=== PATIENT | female | born 1975 | race Caucasian/White ===

== ENCOUNTER → 2022-09-08 13:03 | Outpatient (BNVA) | payer BC, SELFPAY | PROVIDERS: PCP Internal Medicine; Visit Provider Nurse Practitioner Family | DX: Z13.89 Encounter for screening for other disorder (principal) ==

== ENCOUNTER 2023-03-09 08:45 | Outpatient (AMB) | payer BC, SELFPAY ==
[2023-03-09 08:47] VITALS: BP 110/68; PULSE 98; O2SAT 99; BMI 22.6
--- NOTE | 2023-03-09 08:47 | MHC.OFFVIS ---
Intake Vital Signs 03/09/23 08:47 Height 5 ft 6 in Weight 140 lb BMI 22.6 BP 110/68 Blood Pressure Location Rt brachial Position Sitting Pulse 98 Pulse Source Pulse Oximeter Pulse Oximetry (%) 99 Oxygen Delivery Method Room Air Intake Visit Reasons: ongoing cough Recreation Activities Coordinator Required: No Rand Sewer: Rand Sewer offered & declined Accompanied by: Self / Same As Patient Allergies erythromycin base Adverse Reaction (Unknown, Verified 03/09/23 08:53) Vomiting Medication List - Last Reconciled 03/09/23 by Celena Davis LPN albuterol sulfate 90 mcg/actuation 2 puffs inhalation Q6H PRN budesonide-formoterol 80-4.5 mcg/actuation (Symbicort) 2 puffs inhalation BID levonorgestrel (Mirena) intrauterine HPI ongoing cough HPI Details Genna is a pleasant 47 year old, former smoker with 5 pack year history, quit 20+ years ago, with underlying POTS. She was referred by PCP for pulmonary evaluation for possible asthma. She reports prolonged dry coughing after bronchitis and has attempted to participate in vigorous activity but is limited by dyspnea. She denies wheezing or chest tightness. Her PCP trialed albuterol which provided relief, but patient was using q4-6 hours continuously and was switched to symbicort. She reports resolution of cough but develop a mouth sore so recently discontinued use. She denies any childhood asthma. She reports significant seasonal allergies, mostly in the fall, using jerrell with moderate relief. She has never been allergy tested. She does have one dog, but denies any symptoms related to exposure. She denies any occupational exposures. She reports children with seasonal allergies, otherwise no pertinent family history. [facility] Surgical History H/O laparoscopy H/O tympanostomy History of hernia repair History of shoulder surgery Hx of tonsillectomy Social History (Updated 03/09/23 @ 08:56 by Celena Davis LPN) Alcohol intake: current Alcohol intake frequency: a few times a week Patient Tobacco Use Status: Former Tobacco user Quit Date: 2001 Tobacco use type: Cigarette Cigarettes Per Day: 4 Years Smoked: 8 Review of Systems Const Denies chills, Denies excessive sweating, Denies fever(s), Denies headache(s) and Denies night sweats Eyes Denies dry eyes, Denies irritation and Denies itchy eyes ENT Reports Normal hearing present, Denies headache(s), Denies nasal congestion, Denies post nasal drip and Denies sore throat Card Denies chest pain, Denies chest pain at rest, Denies chest pain with activity, Denies claudication, Denies leg edema, Denies dyspnea, Denies dyspnea on exertion, Denies orthopnea and Denies paroxysmal nocturnal dyspnea Resp Denies chest congestion, Denies cough, Denies excessive phlegm production, Denies pain on inspiration, Denies pain with cough, Denies dyspnea, Denies dyspnea on exertion, Denies stridor and Denies wheezing Musc Denies myalgias Neuro Reports Normal hearing present and Denies headache(s) Endo Denies excessive sweating Govind/Lymph Denies lymphadenopathy Aller/Immun Denies itchy eyes and Denies wheezing Physical Exam Vital Signs: Last Vital Signs Pulse 98 03/09/23 08:47 BP 110/68 03/09/23 08:47 Pulse Ox 99 03/09/23 08:47 Oxygen Delivery Method Room Air 03/09/23 08:47 BMI result Body Mass Index 22.6 Const General: cooperative, healthy appearing, comfortable, no acute distress, well developed and alert Orientation/consciousness: patient oriented x3 Limitations: no limitations HEENT Head: Yes normal to inspection, Yes normocephalic and Yes atraumatic Ears: hearing grossly normal bilaterally and external ears normal Eyes General: appearance normal, both eyes and all related structures Eyelids: Yes eyelids normal Sclerae: sclerae normal EOM: EOMs intact bilaterally Neck Neck: Yes normal visual inspection and Yes no lymphadenopathy Lymphatic: no lymphadenopathy noted Chest Chest palpation & inspection: normal inspection of the chest Resp Effort & Inspection: normal respiratory effort, able to speak in complete sentences, no audible wheezes, no cough, no stridor, not tachypneic, no tripod positioning and no use of accessory muscles Auscultation: clear to auscultation bilaterally Cardio Jugular venous distension: no JVD Rate: regular rate Rhythm: regular rhythm Skin Other: warm, dry General skin exam: no rashes or lesions noted Neuro General: patient oriented x3 Cranial nerves: Yes Normal hearing present Cognition (Neuro): normal cognition Gait exam (Neuro): Normal gait present Extrem General: Yes normal to inspection, Yes capillary refill normal, Yes no clubbing, cyanosis or edema and Yes no pedal edema Psych Appearance: grossly normal and well kempt Speech and movement: Normal speech and movement present and Clear speech present Affect: normal affect Attitude: cooperative Thought process: Normal thought process present Thought content: Normal thought content present Insight: Good insight present (Psych) Judgement: Good judgement present (Psych) Assessment & Plan Assessment & Plan (1) Asthma: Code(s): J45.909 - Unspecified asthma, uncomplicated (2) Environmental and seasonal allergies: Code(s): J30.89 - Other allergic rhinitis Plan Reviewed PFT which revealed borderline mild obstruction with no significant response to bronchodilation. Lung volumes and DLCO WNL. Discussed methacholine challenge, but will hold off as patient responded well to ICS/LABA. Will switch symbicort to Breo, as patient developed mouth sores after symbicort use despite proper oral hygienge. Inhaler technique reviewed. Will also send for RAST testing. All questions were answered and patient is in agreement of plan. Will follow up in 4-6 weeks to assess response to inhaler and review lab results. Orders: Orders Rast Allergen Today J - Other allergic rhinitis, J45.909 - Unspecified asthma, uncomplicated Complete Blood Count Auto Diff Today J30 - Other allergic rhinitis, J45.909 - Unspecified asthma, uncomplicated Medications: New fluticasone furoate-vilanterol 100-25 mcg/dose (Breo Ellipta) 1 inh inhalation DAILY 60 ea 3RF albuterol sulfate 90 mcg/actuation 2 puffs inhalation Q4-6H PRN 1 ea 3RF shortness of breath or wheezing Coding Level of Care Code New Pt Level 4 (06916) Diagnoses Asthma J45.909 Environmental and seasonal allergies J30
== END 2023-03-09 09:27 | disposition home or self-care (01) ==
LOC: HO.HPSW 08:45
PROVIDERS: PCP Internal Medicine; Referring Provider Internal Medicine; Visit Provider Nurse Practitioner Family
DX: J45.909 Unspecified asthma, uncomplicated (principal); J30.89 Other allergic rhinitis
CPT/HCPCS: 99204

== ENCOUNTER 2023-03-09 10:10 | Outpatient (REF) | payer BC, SELFPAY ==
[2023-03-09 11:23] LABS: MANUAL DIFF FLAG NO
[2023-03-09 11:42] LABS: Basophils Absolute Auto 0.1 X10*3/uL (0.0-0.2); Basophils Percent Auto 1.2 % (0-2); Eosinophils Absolute Auto 0.1 X10*3/uL (0.0-0.4); Eosinophils Percent Auto 1.8 % (0-4); Hematocrit 40.8 % (37.0-47.0); Hemoglobin 14.7 g/dl (12.0-16.0); Imm Gran Abs Auto 0.01 X10*3/uL (0.00-0.03); Imm Gran Pct Auto 0.2 % (0.0-0.4); Lymphocytes Absolute Auto 1.3 X10*3/uL (1.2-4.9); Lymphocytes Percent Auto 25.6 % (20-40); Mean Corpuscular Hemoglobin 32.5 pg (27.0-33.0); Mean Corpuscular Volume 90.1 fL (80.0-98.0); Mean Platelet Volume 10.5 fL (9.4-12.3); Monocytes Absolute Auto 0.5 X10*3/uL (0.1-1.2); Monocytes Percent Auto 10.1 % (2-11); Neutrophils Percent Auto 61.1 % (45-73); Platelet Count 285 X10*3/uL (160-400); Red Blood Count 4.53 X10*6/uL (4.20-5.50); Red Cell Distribution Width 11.7 % (11.0-16.0)
== END 2023-03-09 10:11 | disposition home or self-care (01) ==
LOC: HO.WFDLDS 10:10
PROVIDERS: Visit Provider Nurse Practitioner Family
DX: J45.909 Unspecified asthma, uncomplicated (principal); Z91.09 Other allergy status, other than to drugs and biological substances
CPT/HCPCS: 36415; 82785; 85025; 86003

== ENCOUNTER 2023-04-13 13:33 | Outpatient (AMB) | payer BC, SELFPAY ==
[2023-04-13 13:35] VITALS: BP 118/64; PULSE 80; O2SAT 100; BMI 22.4
--- NOTE | 2023-04-13 13:35 | A.OFFVIS_ITS ---
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 Required: No Laboratory Immunologist: Laboratory Immunologist offered & declined Accompanied by: Self / Same As Patient Allergies erythromycin base Adverse Reaction (Unknown, Verified 04/13/23 13:39) Vomiting Medication List - Last Reconciled 04/13/23 by Celena Davis LPN albuterol sulfate 90 mcg/actuation 2 puffs inhalation Q6H PRN albuterol sulfate 90 mcg/actuation 2 puffs inhalation Q4-6H PRN fluticasone propion-salmeterol 115-21 mcg/actuation (Advair HFA) 2 puffs inhalation Q12H norgestimate-ethinyl estradiol 0.25-35 mg-mcg 1 tab PO DAILY HPI 4-6 week f/u HPI Details Genna is a pleasant 47 year old, former smoker with 5 pack year history, quit 20+ years ago, with underlying asthma and POTS. Today she presents to review RAST results and response to inhaler. At the last visit she was started on Advair HFA after persistent dry cough without any associated wheezing or chest tightness. She reports complete resolution of cough and has not used her albuterol MDI, which she was using q4-6 hours prior. She continues to report mild dyspnea with moderate exertion. [facility] Surgical History H/O laparoscopy H/O tympanostomy History of hernia repair History of shoulder surgery Hx of tonsillectomy Social History (Updated 04/13/23 @ 13:43 by Celena Davis LPN) Alcohol intake: current Alcohol intake frequency: a few times a week Patient Tobacco Use Status: Former Tobacco user Quit Date: 2001 Tobacco use type: Cigarette Cigarettes Per Day: 4 Years Smoked: 8 Review of Systems Const Denies chills, Denies excessive sweating, Denies fever(s), Denies headache(s) and Denies night sweats Eyes Denies dry eyes, Denies irritation and Denies itchy eyes ENT Reports Normal hearing present, Denies headache(s), Denies nasal congestion, Denies post nasal drip and Denies sore throat Card Denies chest pain, Denies chest pain at rest, Denies chest pain with activity, Denies claudication, Denies leg edema, Denies orthopnea and Denies paroxysmal nocturnal dyspnea Resp Denies chest congestion, Denies excessive phlegm production, Denies pain on inspiration, Denies pain with cough, Denies stridor and Denies wheezing Musc Denies myalgias Neuro Reports Normal hearing present and Denies headache(s) Endo Denies excessive sweating Govind/Lymph Denies lymphadenopathy Aller/Immun Denies itchy eyes and Denies wheezing Physical Exam Vital Signs: Last Vital Signs Pulse 80 04/13/23 13:35 BP 118/64 04/13/23 13:35 Pulse Ox 100 04/13/23 13:35 Oxygen Delivery Method Room Air 04/13/23 13:35 BMI result Body Mass Index 22.4 Const General: cooperative, healthy appearing, comfortable, no acute distress, well developed and alert Orientation/consciousness: patient oriented x3 Limitations: no limitations HEENT Head: Yes normal to inspection, Yes normocephalic and Yes atraumatic Ears: hearing grossly normal bilaterally and external ears normal Eyes General: appearance normal, both eyes and all related structures Eyelids: Yes eyelids normal Sclerae: sclerae normal EOM: EOMs intact bilaterally Neck Neck: Yes normal visual inspection and Yes no lymphadenopathy Lymphatic: no lymphadenopathy noted Chest Chest palpation & inspection: normal inspection of the chest Resp Effort & Inspection: normal respiratory effort, able to speak in complete sentences, no audible wheezes, no cough, no stridor, not tachypneic, no tripod positioning and no use of accessory muscles Auscultation: clear to auscultation bilaterally Cardio Jugular venous distension: no JVD Rate: regular rate Rhythm: regular rhythm Skin Other: warm, dry General skin exam: no rashes or lesions noted Neuro General: patient oriented x3 Cranial nerves: Yes Normal hearing present Cognition (Neuro): normal cognition Gait exam (Neuro): Normal gait present Extrem General: Yes normal to inspection, Yes capillary refill normal, Yes no clubbing, cyanosis or edema and Yes no pedal edema Psych Appearance: grossly normal and well kempt Speech and movement: Normal speech and movement present and Clear speech present Affect: normal affect Attitude: cooperative Thought process: Normal thought process present Thought content: Normal thought content present Insight: Good insight present (Psych) Judgement: Good judgement present (Psych) Assessment & Plan Assessment & Plan (1) Asthma: Code(s): J45.909 - Unspecified asthma, uncomplicated (2) Environmental and seasonal allergies: Code(s): J30.89 - Other allergic rhinitis Plan Reviewed RAST which was positive for dust mites and dog. Patient does have a dog at home. We discussed ways to decrease allergen exposure including dehumidifier and mattress/pillow covers. Although she reported significant improvements with Advair HFA, it was quiet costly. Will try to send in generic. If not covered, will trial another ICS/LABA. All questions were answered and patient is in agreement of plan. Will follow up in 6 months or sooner if needed. Medications: Changed From fluticasone propion-salmeterol 115-21 mcg/actuation (Advair HFA) 2 puffs i nhalation Q12H 1 ea 3RF To fluticasone propion-salmeterol 115-21 mcg/actuation (Advair HFA) generic only 2 puffs inhalation Q12H 1 ea 3RF Coding Level of Care Code Est Pt Level 3 (77544) Diagnoses Asthma J45.909 Environmental and seasonal allergies J30.89
== END 2023-04-13 14:07 | disposition home or self-care (01) ==
PROVIDERS: PCP Internal Medicine; Visit Provider Nurse Practitioner Family
DX: J45.909 Unspecified asthma, uncomplicated (principal); J30.89 Other allergic rhinitis
CPT/HCPCS: 99213

== ENCOUNTER → 2023-04-13 13:33 | Outpatient (BNVA) | payer BC, SELFPAY | PROVIDERS: PCP Internal Medicine; Visit Provider Nurse Practitioner Family ==

== ENCOUNTER 2023-10-03 09:18 | Outpatient (AMB) | payer BC, SELFPAY ==
[2023-10-03 09:27] VITALS: BP 114/68; PULSE 89; O2SAT 98; BMI 22.3
--- NOTE | 2023-10-03 09:27 | MHC.OFFVIS ---
Intake Vital Signs 10/03/23 09:27 Height 5 ft 6 in Weight 138 lb BMI 22.3 BP 114/68 Blood Pressure Location Rt brachial Position Sitting Pulse 89 Pulse Source Pulse Oximeter Pulse Oximetry (%) 98 Oxygen Delivery Method Room Air Intake Visit Reasons: asthma : 6 month f/u Traffic Workforce Representative Required: No Credit Card Control Clerk: Credit Card Control Clerk offered & declined Accompanied by: Self / Same As Patient Allergies erythromycin base Adverse Reaction (Unknown, Verified 10/03/23 09:30) Vomiting Medication List - Last Reconciled 10/03/23 by Celena Davis LPN albuterol sulfate 90 mcg/actuation 2 puffs inhalation Q6H PRN albuterol sulfate 90 mcg/actuation 2 puffs inhalation Q4-6H PRN fluticasone propion-salmeterol 115-21 mcg/actuation 2 puffs PO Q12H norgestimate-ethinyl estradiol 0.25-35 mg-mcg 1 tab PO DAILY HPI asthma : 6 month f/u HPI Details Genna is a pleasant 47 year old, former smoker with 5 pack year history, quit 20+ years ago, with underlying asthma and POTS. At baseline, she has been well controlled on Advair 115mcg 1 inhalation BID, with minimal use of albuterol inhaler. She reports dry cough that started last week, attributing it to seasonal allergies, and had resolution after initiating daily jrerell. Occasionally will have dyspnea on exertion, otherwise denies wheezing or chest tightness. She reports having COVID in June but was able to recover at home with no issues. Today she presents for a routine follow up. [facility] Surgical History (Reviewed 09/08/22 @ 13:21 by Miriam Villalta [facility]) H/O laparoscopy H/O tympanostomy History of hernia repair History of shoulder surgery Hx of tonsillectomy Social History (Updated 10/03/23 @ 09:31 by Celena Davis LPN) Alcohol intake: current Alcohol intake frequency: a few times a week Patient Tobacco Use Status: Former Tobacco user Quit Date: 2001 Tobacco use type: Cigarette Cigarettes Per Day: 4 Years Smoked: 8 Review of Systems Const Denies chills, Denies excessive sweating, Denies fever(s), Denies headache(s) and Denies night sweats Eyes Denies dry eyes, Denies irritation and Denies itchy eyes ENT Reports Normal hearing present, Denies headache(s), Denies nasal congestion, Denies nasal discharge, Denies post nasal drip and Denies sore throat Card Denies chest pain, Denies chest pain at rest, Denies chest pain with activity, Denies claudication, Denies leg edema, Denies dyspnea, Denies orthopnea and Denies paroxysmal nocturnal dyspnea Resp Denies chest congestion, Denies cough, Denies excessive phlegm production, Denies pain on inspiration, Denies pain with cough, Denies dyspnea, Denies stridor and Denies wheezing Musc Denies myalgias Neuro Reports Normal hearing present and Denies headache(s) Endo Denies excessive sweating Govind/Lymph Denies lymphadenopathy Aller/Immun Denies itchy eyes, Denies seasonal rhinorrhea and Denies wheezing Physical Exam Vital Signs: Last Vital Signs Pulse 89 10/03/23 09:27 BP 114/68 10/03/23 09:27 Pulse Ox 98 10/03/23 09:27 Oxygen Delivery Method Room Air 10/03/23 09:27 BMI result Body Mass Index 22.3 Const General: cooperative, healthy appearing, comfortable, no acute distress, well developed and alert Orientation/consciousness: patient oriented x3 Limitations: no limitations HEENT Head: Yes normal to inspection, Yes normocephalic and Yes atraumatic Ears: hearing grossly normal bilaterally and external ears normal Eyes General: appearance normal, both eyes and all related structures Eyelids: Yes eyelids normal Sclerae: sclerae normal EOM: EOMs intact bilaterally Neck Neck: Yes normal visual inspection and Yes no lymphadenopathy Lymphatic: no lymphadenopathy noted Chest Chest palpation & inspection: normal inspection of the chest Resp Effort & Inspection: normal respiratory effort, able to speak in complete sentences, no audible wheezes, no cough, no stridor, not tachypneic, no tripod positioning and no use of accessory muscles Auscultation: clear to auscultation bilaterally Cardio Jugular venous distension: no JVD Rate: regular rate Rhythm: regular rhythm Skin Other: warm, dry General skin exam: no rashes or lesions noted Neuro General: patient oriented x3 Cranial nerves: Yes Normal hearing present Cognition (Neuro): normal cognition Gait exam (Neuro): Normal gait present Extrem General: Yes normal to inspection, Yes capillary refill normal, Yes no clubbing, cyanosis or edema and Yes no pedal edema Psych Appearance: grossly normal and well kempt Speech and movement: Normal speech and movement present and Clear speech present Affect: normal affect Attitude: cooperative Thought process: Normal thought process present Thought content: Normal thought content present Insight: Good insight present (Psych) Judgement: Good judgement present (Psych) Assessment & Plan Assessment & Plan (1) Asthma: Code(s): J45.909 - Unspecified asthma, uncomplicated (2) Environmental and seasonal allergies: Code(s): J30.89 - Other allergic rhinitis Plan Vail reports excellent control of symptoms at this time, advised to continue current regimen. Recommended to use albuterol 15-20 minutes prior to exercise to see if this alleviates dyspnea with exertion. All questions were answered and patient is in agreement of plan. Will follow up in 6 months or sooner if needed. Coding Level of Care Code Est Pt Level 3 (63334) Diagnoses Asthma J45.909 Environmental and seasonal allergies J30.89
== END 2023-10-03 09:46 | disposition home or self-care (01) ==
PROVIDERS: PCP Internal Medicine; Visit Provider Nurse Practitioner Family
DX: J45.909 Unspecified asthma, uncomplicated (principal); J30.89 Other allergic rhinitis
CPT/HCPCS: 99213

== ENCOUNTER → 2023-10-03 09:18 | Outpatient (BNVA) | payer BC, SELFPAY | PROVIDERS: PCP Internal Medicine; Visit Provider Nurse Practitioner Family ==

== ENCOUNTER 2023-11-07 08:39 | Outpatient (AMB) | payer BC, SELFPAY ==
[2023-11-07 08:45] VITALS: BP 104/68; PULSE 95; O2SAT 98; BMI 22.4
--- NOTE | 2023-11-07 08:45 | MHC.OFFVIS ---
Vital Signs 11/07/23 08:45 Height 5 ft 6 in Weight 138 lb 8 oz BMI 22.4 BP 104/68 Blood Pressure Location Rt brachial Position Sitting Pulse 95 Pulse Source Pulse Oximeter Pulse Oximetry (%) 98 Oxygen Delivery Method Room Air Intake Visit Reasons: Persistent Cough Allergies erythromycin base Adverse Reaction (Unknown, Verified 11/07/23 08:48) Vomiting HPI HPI Persistent Cough: Details: Genna is a pleasant 47 year old, former smoker with 5 pack year history, quit 20+ years ago, with underlying asthma and POTS. At baseline, she has been well controlled on Advair 115mcg 1 inhalation BID, with minimal use of albuterol inhaler. Today she presents for an acute visit. She reports dry cough and chest tightness that started about ten days ago, attributing it to seasonal allergies initially. She increased her Advair to 2 inhalations twice daily a few days ago and started daily zyrtec with minimal improvement in symptoms. She also has trialied albtuerol with minimal change in symptoms. She denies any dyspnea on exertion or wheezing. She denies any fevers, chills or sick contacts. [facility] Surgical History H/O laparoscopy H/O tympanostomy History of hernia repair History of shoulder surgery Hx of tonsillectomy Social History Alcohol intake: current Alcohol intake frequency: a few times a week Patient Tobacco Use Status: Former Tobacco user Quit Date: 2001 Tobacco use type: Cigarette Cigarettes Per Day: 4 Years Smoked: 8 Review of Systems Const Denies chills, Denies excessive sweating, Denies fever(s), Denies headache(s) and Denies night sweats Eyes Denies dry eyes, Denies irritation and Denies itchy eyes ENT Reports Normal hearing present, Denies headache(s), Denies nasal congestion, Denies nasal discharge and Denies sore throat Card Denies chest pain, Denies chest pain at rest, Denies chest pain with activity, Denies claudication, Denies leg edema, Denies dyspnea, Denies orthopnea and Denies paroxysmal nocturnal dyspnea Resp Denies chest congestion, Denies excessive phlegm production, Denies dyspnea, Denies stridor and Denies wheezing Musc Denies myalgias Neuro Reports Normal hearing present and Denies headache(s) Endo Denies excessive sweating Govind/Lymph Denies lymphadenopathy Aller/Immun Denies itchy eyes, Denies seasonal rhinorrhea and Denies wheezing Physical Exam Vital Signs: Last Vital Signs Pulse 95 11/07/23 08:45 BP 104/68 11/07/23 08:45 Pulse Ox 98 11/07/23 08:45 Oxygen Delivery Method Room Air 11/07/23 08:45 BMI result Body Mass Index 22.4 Const General: cooperative, healthy appearing, comfortable, no acute distress, well developed and alert Orientation/consciousness: patient oriented x3 Limitations: no limitations HEENT Head: Yes normal to inspection, Yes normocephalic and Yes atraumatic Ears: hearing grossly normal bilaterally and external ears normal Eyes General: appearance normal, both eyes and all related structures Eyelids: Yes eyelids normal Sclerae: sclerae normal EOM: EOMs intact bilaterally Neck Neck: Yes normal visual inspection and Yes no lymphadenopathy Lymphatic: no lymphadenopathy noted Chest Chest palpation & inspection: normal inspection of the chest Resp Other: diminished expiratory lung sounds with post exhalation cough, improved with albuterol neb Effort & Inspection: normal respiratory effort, able to speak in complete sentences, no audible wheezes, no stridor, not tachypneic, no tripod positioning and no use of accessory muscles Cardio Jugular venous distension: no JVD Rate: regular rate Rhythm: regular rhythm Skin Other: warm, dry General skin exam: no rashes or lesions noted Neuro General: patient oriented x3 Cranial nerves: Yes Normal hearing present Cognition (Neuro): normal cognition Gait exam (Neuro): Normal gait present Extrem General: Yes normal to inspection, Yes capillary refill normal, Yes no clubbing, cyanosis or edema and Yes no pedal edema Psych Appearance: grossly normal and well kempt Speech and movement: Normal speech and movement present and Clear speech present Affect: normal affect Attitude: cooperative Thought process: Normal thought process present Thought content: Normal thought content present Insight: Good insight present (Psych) Judgement: Good judgement present (Psych) Office Procedures Nebulizer Treatment Nebulizer Treatment [id number]/MDI RX initial, or Nebulizer Subsequent Treatment Office Meds albuterol sulfate 2.5 mg/3 mL (0.083 %) solution for nebulization Performing Provider: Carmen White NP Performing Location: [facility] Administered by: Celena Davis LPN on 11/07/23 09:06 Dose Route Admin Location Dispensed Lot Number Expiration Date [facility] Senior Database Programmer 2.5 mg inhalation 3 mL [id number] 05/24/24 [id number] [facility] Assessment & Plan Assessment & Plan (1) Asthma: Code(s): J45.909 - Unspecified asthma, uncomplicated Category: Medical (2) Environmental and seasonal allergies: Code(s): J30.89 - Other allergic rhinitis Category: Medical Plan Vail presents for an acute visit reporting persistent dry cough and chest tightness for the past 10 days. Nebulizer given in office with symptomatic improvement however still with post exhalation cough. Will send for prednisone and trial singulair. All questions were answered and patient is in agreement of plan. Will follow up in 3 months or sooner if needed. Orders: Orders AMB Nebulizer Treatment Today J45.909 - Unspecified asthma, uncomplicated Medications: New prednisone 40 mg (2 x 20 mg) PO DAILY 10 tabs 0RF Coding Level of Care Code Est Pt Level 4 (73220) Diagnoses Asthma J45.909 Environmental and seasonal allergies J30.89 CPT Codes Nebulizer Treatment - Nebulizer Treatment, initial or subsequent: [id number]-Kalqztuln/MDI RX initial, or Nebulizer Subsequent Treatment ([id number])
== END 2023-11-07 09:34 | disposition home or self-care (01) ==
PROVIDERS: PCP Internal Medicine; Visit Provider Nurse Practitioner Family
DX: J45.909 Unspecified asthma, uncomplicated (principal); J30.89 Other allergic rhinitis
CPT/HCPCS: 99214

== ENCOUNTER → 2023-11-07 08:39 | Outpatient (BNVA) | payer BC, SELFPAY | PROVIDERS: PCP Internal Medicine; Visit Provider Nurse Practitioner Family | DX: J45.909 Unspecified asthma, uncomplicated (principal) | CPT/HCPCS: 94640 ==

== ENCOUNTER 2024-06-04 08:38 | Outpatient (AMB) | payer BC, SELFPAY ==
--- NOTE | 2024-06-04 08:45 | MHC.OFFVIS ---
Vital Signs 06/04/24 08:50 Height 5 ft 6 in Weight 139 lb 2 oz BMI 22.5 BP 106/70 Blood Pressure Location Rt brachial Position Sitting Pulse 82 Pulse Source Pulse Oximeter Pulse Oximetry (%) 98 Oxygen Delivery Method Room Air Intake Visit Reasons: Asthma Allergies erythromycin base Adverse Reaction (Unknown, Verified 06/04/24 08:51) Vomiting HPI HPI Asthma: Details: Genna is a pleasant 48 year old, former smoker with 5 pack year history, quit 20+ years ago, with underlying asthma and POTS. At baseline, she has been well controlled on Advair 115mcg ,albuterol MDI, zyrtec and singulair. Today she presents for routine follow-up. She denies any visits to urgent care or hospitalizations related to respiratory distress since last visit. She does note new diagnosis of GERD, recently started on omeprazole and has upper and lower GI scheduled in July 28 [facility] when GI. Main sx in stomach discomfort, no cough. At this time she reports good control of respiratory symptoms on current regimen. She does note that Advair is quite expensive, insurance recommended Wixela. [facility] Surgical History H/O laparoscopy H/O tympanostomy History of hernia repair History of shoulder surgery Hx of tonsillectomy Social History Alcohol intake: current Alcohol intake frequency: a few times a week Patient Tobacco Use Status: Former Tobacco user Tobacco use type: Cigarette Cigarettes Per Day: 4 Years Smoked: 8 Review of Systems Const Denies chills, Denies excessive sweating, Denies fever(s), Denies headache(s) and Denies night sweats Eyes Denies dry eyes, Denies irritation and Denies itchy eyes ENT Reports Normal hearing present, Denies headache(s), Denies nasal congestion, Denies nasal discharge and Denies sore throat Card Denies chest pain, Denies chest pain at rest, Denies chest pain with activity, Denies claudication, Denies leg edema, Denies dyspnea, Denies dyspnea on exertion, Denies orthopnea and Denies paroxysmal nocturnal dyspnea Resp Denies chest congestion, Denies cough, Denies excessive phlegm production, Denies dyspnea, Denies dyspnea on exertion, Denies stridor and Denies wheezing Musc Denies myalgias Neuro Reports Normal hearing present and Denies headache(s) Endo Denies excessive sweating Govind/Lymph Denies lymphadenopathy Aller/Immun Denies itchy eyes, Denies seasonal rhinorrhea and Denies wheezing Physical Exam Vital Signs: BMI result Body Mass Index 22.5 Const General: cooperative, healthy appearing, comfortable, no acute distress, well developed and alert Orientation/consciousness: patient oriented x3 Limitations: no limitations HEENT Head: Yes normal to inspection, Yes normocephalic and Yes atraumatic Ears: hearing grossly normal bilaterally and external ears normal Eyes General: appearance normal, both eyes and all related structures Eyelids: Yes eyelids normal Sclerae: sclerae normal EOM: EOMs intact bilaterally Neck Neck: Yes normal visual inspection and Yes no lymphadenopathy Lymphatic: no lymphadenopathy noted Chest Chest palpation & inspection: normal inspection of the chest Resp Effort & Inspection: normal respiratory effort, able to speak in complete sentences, no audible wheezes, no cough, no stridor, not tachypneic, no tripod positioning and no use of accessory muscles Auscultation: clear to auscultation bilaterally Cardio Jugular venous distension: no JVD Rate: regular rate Rhythm: regular rhythm Skin Other: warm, dry General skin exam: no rashes or lesions noted Neuro General: patient oriented x3 Cranial nerves: Yes Normal hearing present Cognition (Neuro): normal cognition Gait exam (Neuro): Normal gait present Extrem General: Yes normal to inspection, Yes capillary refill normal, Yes no clubbing, cyanosis or edema and Yes no pedal edema Psych Appearance: grossly normal and well kempt Speech and movement: Normal speech and movement present and Clear speech present Affect: normal affect Attitude: cooperative Thought process: Normal thought process present Thought content: Normal thought content present Insight: Good insight present (Psych) Judgement: Good judgement present (Psych) Assessment & Plan Assessment & Plan (1) Asthma: Code(s): J45.909 - Unspecified asthma, uncomplicated Category: Medical (2) Environmental and seasonal allergies: Code(s): J30.89 - Other allergic rhinitis Category: Medical Plan Vail reports excellent control of symptoms at this time, advised to continue current regimen. Will attempt to switch Advair to Wixela. All questions were answered and patient is in agreement of plan. Will follow up in 3 months or sooner if needed. Medications: New fluticasone propion-salmeterol 250-50 mcg/dose (Wixela Inhub) 1 inh inhalation Q12H 60 ea 6RF Refilled albuterol sulfate 90 mcg/actuation 2 puffs inhalation Q4-6H PRN 1 ea 3RF shortness of breath or wheezing Discontinued prednisone Discontinued Reason: Patient Completed Course 40 mg (2 x 20 mg) PO DAILY 10 tabs 0RF Coding Level of Care Code Est Pt Level 3 (74279) Diagnoses Asthma J45.909 Environmental and seasonal allergies J30.89
[2024-06-04 08:50] VITALS: BP 106/70; PULSE 82; O2SAT 98; BMI 22.5
== END 2024-06-04 09:11 | disposition home or self-care (01) ==
PROVIDERS: PCP Internal Medicine; Visit Provider Nurse Practitioner Family
DX: J45.909 Unspecified asthma, uncomplicated (principal); J30.89 Other allergic rhinitis
CPT/HCPCS: 99213

== ENCOUNTER 2024-09-19 14:56 | Outpatient (AMB) | payer BC, SELFPAY ==
[2024-09-19 15:00] VITALS: BP 122/60; PULSE 100; O2SAT 97; BMI 21.3
--- NOTE | 2024-09-19 15:00 | MHC.OFFVIS ---
Vital Signs 09/19/24 15:00 Height 5 ft 6 in Weight 132 lb BMI 21.3 BP 122/60 Blood Pressure Location Rt brachial Position Sitting Pulse 100 Pulse Source Pulse Oximeter Pulse Oximetry (%) 97 Oxygen Delivery Method Room Air Intake Visit Reasons: asthma/ sick Hospice Administrator Required: No Obstetrician Gynecologist: Obstetrician Gynecologist offered & declined Accompanied by: Self / Same As Patient Allergies erythromycin base Adverse Reaction (Unknown, Verified 09/19/24 15:05) Vomiting Medication List - Last Reconciled 09/19/24 by Celena Davis LPN albuterol sulfate 90 mcg/actuation 2 puffs inhalation Q4-6H PRN cetirizine (Zyrtec) 10 mg PO DAILY PRN fluticasone propion-salmeterol 250-50 mcg/dose (Wixela Inhub) 1 inh inhalation Q12H levonorgestrel (Mirena) intrauterine montelukast (Singulair) 10 mg PO BEDTIME omeprazole 20 mg PO DAILY HPI HPI asthma/ sick: Details: Genna is a pleasant 49 year old, former smoker with 5 pack year history, quit 20+ years ago, with underlying asthma and POTS. At baseline, she has been well controlled on Advair 115mcg ,albuterol MDI, zyrtec and singulair. Today she presents for an acute visit. She reports traveling and developed flu like symptoms two weeks ago initially with fever and body aches, testing + Influenza A. She continues to report productive cough, chest congestion and increased dyspnea. She has used Sudafed without significant relief. [facility] Surgical History H/O laparoscopy H/O tympanostomy History of hernia repair History of shoulder surgery Hx of tonsillectomy Social History Alcohol intake: current Alcohol intake frequency: a few times a week Patient Tobacco Use Status: Former Tobacco user Tobacco use type: Cigarette Cigarettes Per Day: 4 Years Smoked: 8 Review of Systems Const Denies chills, Denies excessive sweating, Denies fever(s), Denies headache(s) and Denies night sweats Eyes Denies dry eyes, Denies irritation and Denies itchy eyes ENT Reports Normal hearing present, Denies headache(s), Denies nasal congestion, Denies nasal discharge, Denies post nasal drip and Denies sore throat Card Denies chest pain, Denies chest pain at rest, Denies chest pain with activity, Denies claudication, Denies leg edema, Denies orthopnea and Denies paroxysmal nocturnal dyspnea Resp Denies excessive phlegm production, Denies pain on inspiration, Denies pain with cough, Denies stridor and Denies wheezing Musc Denies myalgias Neuro Reports Normal hearing present and Denies headache(s) Endo Denies excessive sweating Govind/Lymph Denies lymphadenopathy Aller/Immun Denies itchy eyes, Denies seasonal rhinorrhea and Denies wheezing Physical Exam Vital Signs: Last Vital Signs Pulse 100 09/19/24 15:00 BP 122/60 09/19/24 15:00 Pulse Ox 97 09/19/24 15:00 Oxygen Delivery Method Room Air 09/19/24 15:00 BMI result Body Mass Index 21.3 Const General: cooperative, healthy appearing, comfortable, no acute distress, well developed and alert Orientation/consciousness: patient oriented x3 Limitations: no limitations HEENT Head: Yes normal to inspection, Yes normocephalic and Yes atraumatic Ears: hearing grossly normal bilaterally and external ears normal Eyes General: appearance normal, both eyes and all related structures Eyelids: Yes eyelids normal Sclerae: sclerae normal EOM: EOMs intact bilaterally Neck Neck: Yes normal visual inspection and Yes no lymphadenopathy Lymphatic: no lymphadenopathy noted Chest Chest palpation & inspection: normal inspection of the chest Resp Effort & Inspection: normal respiratory effort, able to speak in complete sentences, no audible wheezes, Actively coughing Quality: wet, no stridor, not tachypneic, no tripod positioning and no use of accessory muscles Auscultation: rhonchi Cardio Jugular venous distension: no JVD Rate: regular rate Rhythm: regular rhythm Skin Other: warm, dry General skin exam: no rashes or lesions noted Neuro General: patient oriented x3 Cranial nerves: Yes Normal hearing present Cognition (Neuro): normal cognition Gait exam (Neuro): Normal gait present Extrem General: Yes normal to inspection, Yes capillary refill normal, Yes no clubbing, cyanosis or edema and Yes no pedal edema Psych Appearance: grossly normal and well kempt Speech and movement: Normal speech and movement present and Clear speech present Affect: normal affect Attitude: cooperative Thought process: Normal thought process present Thought content: Normal thought content present Insight: Good insight present (Psych) Judgement: Good judgement present (Psych) Assessment & Plan Assessment & Plan (1) Asthma: Code(s): J45.909 - Unspecified asthma, uncomplicated Category: Medical (2) Environmental and seasonal allergies: Code(s): J30.89 - Other allergic rhinitis Category: Medical Plan Will treat bronchitic symptoms with azithromycin and encouraged use of albuterol MDI. Will hold off on prednisone at this time. She is aware to call if symptoms do not improve. Will also send nebulizer for home use with albuterol solution. All questions were answered and patient is in agreement of plan. Will follow up in 3-6 months or sooner if needed. Medications: New azithromycin For 250 mg dose pack: take 500 mg today (day 1), then 250 mg for 4 days (days 2-5) PO 6 tabs 0RF albuterol sulfate 2.5 mg (3 mL) inhalation Q4-6H PRN 180 mL 0RF shortness of breath or wheezing Coding Level of Care Code Est Pt Level 4 (60618) Diagnoses Asthma J45.909 Environmental and seasonal allergies J30.89
== END 2024-09-19 15:22 | disposition home or self-care (01) ==
LOC: HO.HPSW 14:56
PROVIDERS: PCP Internal Medicine; Visit Provider Nurse Practitioner Family
DX: J45.909 Unspecified asthma, uncomplicated (principal); J30.89 Other allergic rhinitis
CPT/HCPCS: 99214

== ENCOUNTER 2025-03-17 15:13 | Outpatient (AMB) | payer BC, SELFPAY ==
[2025-03-17 15:14] VITALS: BP 90/62; PULSE 72; O2SAT 98; BMI 22.5
--- NOTE | 2025-03-17 15:14 | MHC.OFFVIS ---
Vital Signs 03/17/25 15:14 Height 5 ft 6 in Weight 139 lb 2 oz BMI 22.5 BP 90/62 Blood Pressure Location Rt brachial Position Sitting Pulse 72 Pulse Source Pulse Oximeter Pulse Oximetry (%) 98 Oxygen Delivery Method Room Air Intake Visit Reasons: asthma/ sick Allergies erythromycin base Adverse Reaction (Unknown, Verified 03/17/25 15:17) Vomiting HPI HPI asthma/ sick: Details: Genna is a pleasant 49 year old, former 5 pack year smoker, quit 20+ years ago, with underlying asthma and POTS. She reports excellent control of respiratory symptoms on current regimen of Wixela, albuterol PRN, zyrtec and Singulair. Over the summer she decreased used to one inhalation daily however with the season changing developed a dry cough, increasing dose to BID with good effect. She uses albuterol MDI infrequently. Denies any visits to urgent care or hospitalizations related to respiratory distress since the last visit. [facility] Surgical History H/O laparoscopy H/O tympanostomy History of hernia repair History of shoulder surgery Hx of tonsillectomy Social History Alcohol intake: current Alcohol intake frequency: a few times a week Patient Tobacco Use Status: Former Tobacco user Tobacco use type: Cigarette Cigarettes Per Day: 4 Years Smoked: 8 Review of Systems Const Denies chills, Denies excessive sweating, Denies fever(s), Denies headache(s) and Denies night sweats Eyes Denies dry eyes, Denies irritation and Denies itchy eyes ENT Reports Normal hearing present, Denies headache(s), Denies nasal congestion, Denies nasal discharge, Denies post nasal drip and Denies sore throat Card Denies chest pain, Denies chest pain at rest, Denies chest pain with activity, Denies claudication, Denies leg edema, Denies dyspnea, Denies dyspnea on exertion, Denies orthopnea and Denies paroxysmal nocturnal dyspnea Resp Denies chest congestion, Denies excessive phlegm production, Denies pain on inspiration, Denies pain with cough, Denies dyspnea, Denies dyspnea on exertion, Denies stridor and Denies wheezing Musc Denies myalgias Neuro Reports Normal hearing present and Denies headache(s) Endo Denies excessive sweating Govind/Lymph Denies lymphadenopathy Aller/Immun Denies itchy eyes, Denies seasonal rhinorrhea and Denies wheezing Physical Exam Vital Signs: Last Vital Signs Pulse 72 03/17/25 15:14 BP 90/62 03/17/25 15:14 Pulse Ox 98 03/17/25 15:14 Oxygen Delivery Method Room Air 03/17/25 15:14 BMI result Body Mass Index 22.5 Const General: cooperative, healthy appearing, comfortable, no acute distress, well developed and alert Orientation/consciousness: patient oriented x3 Limitations: no limitations HEENT Head: Yes normal to inspection, Yes normocephalic and Yes atraumatic Ears: hearing grossly normal bilaterally and external ears normal Eyes General: appearance normal, both eyes and all related structures Eyelids: Yes eyelids normal Sclerae: sclerae normal EOM: EOMs intact bilaterally Neck Neck: Yes normal visual inspection and Yes no lymphadenopathy Lymphatic: no lymphadenopathy noted Chest Chest palpation & inspection: normal inspection of the chest Resp Effort & Inspection: normal respiratory effort, able to speak in complete sentences, no audible wheezes, no cough, no stridor, not tachypneic, no tripod positioning and no use of accessory muscles Auscultation: clear to auscultation bilaterally Cardio Jugular venous distension: no JVD Rate: regular rate Rhythm: regular rhythm Skin Other: warm, dry General skin exam: no rashes or lesions noted Neuro General: patient oriented x3 Cranial nerves: Yes Normal hearing present Cognition (Neuro): normal cognition Gait exam (Neuro): Normal gait present Extrem General: Yes normal to inspection, Yes capillary refill normal, Yes no clubbing, cyanosis or edema and Yes no pedal edema Psych Appearance: grossly normal and well kempt Speech and movement: Normal speech and movement present and Clear speech present Affect: normal affect Attitude: cooperative Thought process: Normal thought process present Thought content: Normal thought content present Insight: Good insight present (Psych) Judgement: Good judgement present (Psych) Assessment & Plan Assessment & Plan (1) Asthma: Code(s): J45.909 - Unspecified asthma, uncomplicated Category: Medical (2) Environmental and seasonal allergies: Code(s): J30.89 - Other allergic rhinitis Category: Medical Plan At this time, Genna reports good control of respiratory symptoms on current regimen, advised to continue. She is aware to call if symptoms change. All questions were answered and patient is in agreement of plan. Will follow up in 9-12 months or sooner if needed. Coding Level of Care Code Est Pt Level 3 (88171) Diagnoses Asthma J45.909 Environmental and seasonal allergies J30.89
--- OUTSIDE RECORDS SUMMARY | 2025-03-17 18:10 | XMS_ITS | Clinical Summary ---
Author Organization [facility] [address] [facility] Address [address] [place] [address] Phone Care Team Providers Care Tool Tender Name Role Phone Jim Hurtado MD Primary Care Provider [phone] Surgical History Surgery Date Site/Laterality Comments TYMPANOSTOMY TUBE PLACEMENT 1979 PROCEDURE: HISTORICAL PE TUBES SHOULDER SURGERY 1991 PROCEDURE: HISTORICAL SHOULDER SURGERY; COMMENT: right ABDOMINAL SURGERY 1998 PROCEDURE: MO UNLISTED PROCEDURE ABDOMEN PERITONEUM & OMENTUM; COMMENT: endometriosis HERNIA REPAIR 1984 PROCEDURE: HISTORICAL HERNIA REPAIR/ING TONSILLECTOMY 1992 PROCEDURE: HISTORICAL TONSILLECTOMY OTHER SURGICAL HISTORY PROCEDURE: ---- OTHER ----; COMMENT: IVF's x2 OTHER SURGICAL HISTORY PROCEDURE: ---- OTHER ----; COMMENT: atypical moles removed OTHER SURGICAL HISTORY 12/03/12 PROCEDURE: HISTORICAL THYRO-DUCTAL CYST REMOVAL; COMMENT: Dr Charles Medical History Medical History Date Comments Endometriosis 1998 DX:Endometriosis ; COMMENT: surgery Historical Medical DX DX:TMJ dis order; COMMENT: per old records Family History Medical History Relation Name Comments Coronary artery disease Neg Hx Diabetes Neg Hx Hypertension Neg Hx Other cancer Neg Hx Relation Name Status Comments Brother Alive Daughter Alive 2004 Father Alive Mother Alive Son Alive 2002 Social History Tobacco Use Types Packs/Day Years Used Date Smoking Tobacco: Former Smokeless Tobacco: Never Alcohol Use Standard Drinks/Week Comments Yes 0 (1 standard drink = 0.6 oz pur e alcohol) Comments Unknown Sex and Gender Information Value Date Recorded Sex Assigned at Not on file Legal Sex Female 2:55 AM EST Gender Identity Not on file Sexual Orientation Not on file Obstetrics History Last Filed Vital Signs Vital Sign Reading Time Taken Comments Blood Pressure 126/74 12/12/2023 1:47 PM EDT Pulse 72 12/12/2023 1:47 PM EDT Temperature - - Respiratory Rate - - Oxygen Saturation - - Inhaled Oxygen Concentration - - Weight 62.6 kg (138 lb) 12/12/2023 1:47 PM EDT Height 170.2 cm (5' 7 ) 12/12/2023 1:47 PM EDT Body Mass Index 21.61 12/12/2023 1:47 PM EDT Plan of Treatment Upcoming Encounters Date Type Department Care Team (Late st Contact Info) Description 04/22/2025 2:45 PM EDT Office Visit [facility] [address] [facility] [address] [place] [id number] Radha Mares MD [address] [place] [address] [place] [address] Health Maintenance Due Date Last Done Comments Breast Cancer Screening 1976 Hepatitis B Vaccines (1 of 3 - 19+ 3-dose series) 1995 Cervical Cancer Screening: P ap Smear 1997 DTaP,Tdap,and Td Vaccines (2 - Td or Tdap) 09/29/2018 09/29/2008 Colorectal Cancer Screening: Colonoscopy 06/03/2022 HIV Screening 06/03/2022 Hepatitis C Screening 06/03/2022 Social Influencers of Health Screening 06/03/2022 Depression Screening 2024 COVID-19 Vaccine (3 - 2024-2 6 season) 2025 11/01/2020, 10/09/2020 Influenza Vaccine (#1) 2025 , 03/31/2020, 04/22/2019 Hepatitis A Vaccines Aged Out 09/17/2013 No long er eligible based on patient's age to complete this topic HIB Vaccines Aged Out No longer eligi ble based on patient's age to complete this topic HPV Vaccines Aged Out No longer eligi ble based on patient's age to complete this topic IPV Vaccines Aged Out No longer eligi ble based on patient's age to complete this topic MMR Vaccines Aged Out No longer eligi ble based on patient's age to complete this topic Meningococcal ACWY Vaccine Aged Out N o longer eligible based on patient's age to complete this topic Meningococcal B Vaccine Aged Out No l onger eligible based on patient's age to complete this topic Pneumococcal Vaccine: Pediatrics (0 to 5 Years) and At-Risk Patients (6 to 49 Years) Aged Out No longer eligible b ased on patient's age to complete this topic RSV Immunization Patients Under 20 months Aged Out No longer eligible b ased on patient's age to complete this topic Varicella Vaccines Aged Out No longer eligible based on patient's age to complete this topic Insurance [facility] Care Teams Tool Tender Relationship Specialty Start Date End Date Jim Hurtado MD PCP - General 09/16/08
--- OUTSIDE RECORDS SUMMARY | 2025-03-17 18:10 | XMS_ITS ---
Author Name [facility] Organization Unknown Care Team Organization Name Specialty Phone Email Start Date End Da [facility]co [facility] Termed, PROVIDER Primary Care 05/02/202201/23
--- OUTSIDE RECORDS SUMMARY | 2025-03-17 18:10 | XMS_ITS | Clinical Summary ---
Author Organization [facility] [employer] [facility] [employer] Address [address] [facility] [place] [address] Care Team Providers Care Subcontract Administrator Name Role Phone Jim Hurtado MD Primary Care Provider [phone] Allergies Active Allergy Reactions Criticality Noted Date Comments Erythromycin GI Intolerance,Nausea And Vomiting 09/29/2008 Moxifloxacin Other (See Comments) 04/25/2010 nausea Medications levonorgestrel (MIRENA) 20 mcg/24 hr (5 years) IUD 1 each by intrauterine route. Active Social History Tobacco Use Types Packs/Day Years Used Date Smoking Tobacco: Former Smokeless Tobacco: Never Comments No Sex and Gender Information Value Date Recorded Sex Assigned at Not on file Legal Sex Female 9:02 AM EST Gender Identity Not on file Sexual Orientation Not on file Last Filed Vital Signs Vital Sign Reading Time Taken Comments Blood Pressure 100/60 09/03/2019 8:32 AM EDT Pulse 93 09/03/2019 8:32 AM EDT Temperature 37.2 C (99 F) 09/03/2019 8:32 AM EDT Respiratory Rate 18 09/03/2019 8:32 AM EDT Oxygen Saturation 96% 09/03/2019 8:32 AM EDT Inhaled Oxygen Concentration - - Weight 56.7 kg (125 lb) 08/01/2019 9:50 AM EST Height 172.7 cm (5' 8 ) 08/01/2019 9:50 AM EST Body Mass Index 19.01 08/01/2019 9:50 AM EST Plan of Treatment Health Maintenance Due Date Last Done Comments Colorectal Cancer: COLONOSCO PY Screening every 10 yrs (or Modifier) 1976 Depression: Screening Annual ly using PHQ-2/9 in Adults 18 yrs or above (or HM Modifier)([facility]) 1994 Hepatitis C Virus Infection in Adolescents and Adults: Screening (or Modifier) ([facility]) 1994 [facility] Screening Reminder: [facility] for all adults ([facility]) 1994 Tobacco Smoking Cessation: i n Adults excluding Women: Behavioral and Pharmacotherapy Interventions ([facility]) 1994 Cervical Cancer Screenin 1-65 yrs of age (or Modifier) 1997 Cervical Cancer Screening: P ap every 3 yrs pts age 21-65 1997 Cervical Cancer: Pap Screeni ng with Modifier timing ([facility]) 1997 Cervical Cancer: hrHPV alone or with cotesting Pap for Pts 30-65yrs screening every 5yrs ([facility]) 1997 DTaP/Tdap/Td Vaccines ([facility]) (2 - Td or Tdap) 09/29/2018 09/29/2008 Colorectal Cancer Screening 45 -75 Yrs (or HM Modifier) 2021 Colorectal Cancer: FLEXIBLE SIGMOIDOSCOPY Screening every 5 yrs 2021 Colorectal Cancer: Fecal Immunochemical Test (FIT) Annually [facility] 2021 Colorectal Cancer: High-sens itivity gFOBT Screening Annually [facility] 2021 Colorectal Cancer: Stool Col oguard Screening every 3 yrs 2021 Colorectal Cancer:CT Colonog danica Screening every 5 yrs 2021 Flu Vaccination: Yearly for ages 18mos through 64 years (or Modifier)([facility]) 01/23/2025 04/22/2019 COVID-19 Vaccine Screening: Initial Series and Booster Status ([facility]) ( - 2023- season) 2025 Zoster/Shingles Vaccine Seri es Screening: Adults aged 18+ yrs (or HM Modifiers)([facility]) (1 of 2) 2026 Pneumococcal Vaccination Scr eening: Pts 0-19 & 19-49 yrs of age ([facility]) Aged Out No longer eligible b ased on patient's age to complete this topic Medical Devices Not on file Insurance [facility] Care Teams Subcontract Administrator Relationship Specialty Start Date End Date Jim Hurtado MD [address] [place] [address] PCP - Manager Strategic Partnerships 08/01/17
== END 2025-03-17 15:29 | disposition home or self-care (01) ==
PROVIDERS: PCP Internal Medicine; Visit Provider Nurse Practitioner Family
DX: J45.909 Unspecified asthma, uncomplicated (principal); J30.89 Other allergic rhinitis
CPT/HCPCS: 99213